=== PATIENT | female | born 1955 | race Caucasian/White ===

== ENCOUNTER → 2016-06-28 | Outpatient (CLI) | payer OTHER ==
[~2016-06-28] MED LIST: ATEN-173; ATV/1 PO; BUPR100T8; BUPR200T2 PO; CHOL2000 PO; CLB/200 PO; GLC/500 PO; HYDC25; HYDR-4383 PO; HYDR25TA4 PO; LOSA25TA18 PO; LYR50 PO; MELATAB2 PO; MULT-190 PO; MULT-506 PO; NAPR-1169; PREG1CAP36 PO; PRLSR20 PO; SERT50TA PO; TEMA15CA4 PO; VITAMIN D3 PO
--- NOTE | 2016-06-28 13:04 | MAMMOGRAPHY REPORT ---
BILATERAL DIGITAL SCREENING MAMMOGRAM WITH CAD: 06/28/2016 CLINICAL HISTORY: Routine screening. Patient has no complaints. TECHNIQUE: Current study was also evaluated with a Computer Aided Detection (CAD) system. Bilatera l CC and MLO views were obtained. COMPARISON: Comparison is made to exams dated: 06/23/2015 mammogram, 01/31/2014 mammogram, 02/16/2013 aspiration, 01/28/2013 ultrasound, 01/28/2013 mammogram, and 01/26/2013 mammogram - [facility]. BREAST COMPOSITION: There are scattered areas of fibroglandular density in both breasts. FINDINGS: No suspicious masses, calcifications, or areas of architectural distortion are noted in e ither breast. There has been no significant interval change compared to prior exams. Scattered bilat eral benign-appearing calcifications are not significantly changed. IMPRESSION: ACR BI-RADS CATEGORY 2: BENIGN There is no mammographic evidence of malignancy. A 1 year screening mammogram is recommended. The p atient will receive written notification of the results. Approximately 10% of breast cancers are not detected with mammography. A negative mammographic repor t should not delay biopsy if a clinically suggestive mass is present. Eleni Phillips M.D. /:06/28/2016 07:42:26 Cnc Applications Engineer: Sparkle Siu, [facility] letter sent: Normal 1/2 BI-RADS Code: ACR BI-RADS Category 2: Benign
== END | disposition home or self-care (01) ==
LOC: C.MAMM 07:16
PROVIDERS: ATTEND Obstetrics & Gynecology
DX: Z12.31 Encounter for screening mammogram for malignant neoplasm of breast (principal)

== ENCOUNTER → 2017-07-03 | Outpatient (CLI) | payer OTHER ==
[~2017-07-03] MED LIST changes: -ATEN-173; -ATV/1 PO; -BUPR100T8; -BUPR200T2 PO; -HYDC25; -NAPR-1169; -PREG1CAP36 PO; -VITAMIN D3 PO
--- NOTE | 2017-07-04 07:45 | MAMMOGRAPHY REPORT ---
BILATERAL DIGITAL SCREENING MAMMOGRAM TOMOSYNTHESIS WITH CAD: 07/03/2017 CLINICAL HISTORY: Routine screening. Patient has no complaints. TECHNIQUE: Breast tomosynthesis in addition to standard 2D mammography was performed. Current study was also evaluated with a Computer Aided Detection (CAD) system. COMPARISON: Comparison is made to exams dated: 06/28/2016 mammogram, 06/23/2015 mammogram, 01/31/2014 ma mmogram, 02/16/2013 aspiration, 01/28/2013 ultrasound, and 01/28/2013 mammogram - [facility]. BREAST COMPOSITION: There are scattered areas of fibroglandular density in both breasts. FINDINGS: No suspicious masses, calcifications, or areas of architectural distortion are noted in ei ther breast. There has been no significant interval change compared to prior exams. Scattered bilater al benign-appearing calcifications are not significantly changed. IMPRESSION: ACR BI-RADS CATEGORY 2: BENIGN There is no mammographic evidence of malignancy. A 1 year screening mammogram is recommended. The pa tient will receive written notification of the results. Approximately 10% of breast cancers are not detected with mammography. A negative mammographic report should not delay biopsy if a clinically suggestive mass is present. Eleni Phillips M.D. /:07/03/2017 07:38:33 Educational Recruiter: Sparkle Siu, [facility] letter sent: Normal 1/2 BI-RADS Code: ACR BI-RADS Category 2: Benign
== END | disposition home or self-care (01) ==
LOC: C.MAMM 07:09
PROVIDERS: ATTEND Obstetrics & Gynecology
DX: Z12.31 Encounter for screening mammogram for malignant neoplasm of breast (principal)

== ENCOUNTER 2018-12-14 05:49 | Inpatient (IN) ==
--- NOTE | 2018-12-08 08:25 | PAT Medication Instructions ---
Medication Instructions Date of Service December 08, 2018 Home Medications amlodipine 10 mg PO QAM bupropion HCl 200 mg PO BID celecoxib 200 mg PO QAM hydrochlorothiazide 25 mg PO QAM losartan 100 mg PO QAM metformin 500 mg PO BID omeprazole 40 mg PO DAILY PRN sertraline 50 mg PO QAM temazepam 15 mg PO DAILY MDD SLEEP ASK your surgeon for instructions celecoxib 200 mg PO QAM DO NOT take the morning of surgery hydrochlorothiazide 25 mg PO QAM losartan 100 mg PO QAM metformin 500 mg PO BID Take morning of surgery With a small sip of water, OTHERWISE NOTHING TO EAT OR DRINK AFTER MIDNIGHT: amlodipine 10 mg PO QAM bupropion HCl 200 mg PO BID omeprazole 40 mg PO DAILY PRN(if needed) sertraline 50 mg PO QAM Take evening before surgery bupropion HCl 200 mg PO BID metformin 500 mg PO BID omeprazole 40 mg PO DAILY PRN (if needed) temazepam 15 mg PO DAILY MDD SLEEP Other Notes If you have any questions please call us at [phone] or [phone] or [phone] or [phone]
--- NOTE | 2018-12-08 10:44 | Anesthesiology Consultation ---
Date of Service December 08, 2018 Assessment & Plan (1) Encounter for pre-operative examination: Chart Review Chart Review: Pending: Refer to Additional Notes / Consult section (pending preop testing (labs, EKG, CXR)) and Patient seen in Pre Admission Testing Teaching & Discussion Pre-Anesthesia Teaching/Discussion Notes: Instructed NPO after midnight before surgery,except medications with 15 cc of water. Medication instructions prov ided according to the PAT guidelines. History Surgery Operation Date: 12/14/18 09:20 Proposed Procedures p L4-L5, L5-S1 Laminectomy and Fusion, Possible Posterior Lumbar Interbody Fusion - Ramses Alamo DO Height/Weight Height: 5 ft 6 in Weight: 99.9 kg Allergies Allergy/AdvReac Type Severity Reaction Status Date / Time No Known Allergies Allergy Unverified 12/04/18 13:10 Medications Home Medications Medication Instructions Recorded Confirmed Last Taken amlodipine 10 mg PO QAM 12/04/18 12/04/18 Unknown bupropion HCl 200 mg PO BID 12/04/18 12/04/18 Unknown celecoxib 200 mg PO QAM 12/04/18 12/04/18 Unknown hydrochlorothiazide 25 mg PO QAM 12/04/18 12/04/18 Unknown losartan 100 mg PO QAM 12/04/18 12/04/18 Unknown metformin 500 mg PO BID 12/04/18 12/04/18 Unknown omeprazole 40 mg PO DAILY PRN 12/04/18 12/04/18 Unknown sertraline 50 mg PO QAM 12/04/18 12/04/18 Unknown temazepam 15 mg PO DAILY MDD SLEEP 12/04/18 12/04/18 Unknown Past Medical History Medical History CKD (chronic kidney disease), stage III HTN (hypertension) Malignant melanoma DX 1981, s/p skin lesion excisions + LND, no chemo/xrt Chronic back pain Degenerative disc disease Diabetes mellitus, type 2 NIDDM GERD (gastroesophageal reflux disease) controlled Obesity Osteoarthritis Exercise / Class Metabolic Activity III < 4 Walking/Shop/Light housework (decreased activity level in setting of worsening back pain) Past Surgical History Surgical History H/O arthroscopy of shoulder RIGHT AND LEFT H/O lymph node excision Hx of arthroscopy of knee Hx of exploratory laparotomy RIGHT OVARY REMOVED WHILE Status post re-excision of malignant skin lesion MELANOMA FROM HEAD Past Anesthesia History No Hx of Anesthesia Complications (except PONV*) and No Family Hx of Anesthesia Complications History of PONV No Hx of Motion Sickness and History of PONV Social History Smoking Status: Never smoker Do You Dip or Chew Tobacco: No Hx Alcohol Use: Yes Alcohol type: wine alcohol intake frequency: holidays/special occasions only Hx Substance Use: No substance use type: does not use Review of Systems Reflux controlled. Patient denies chest pain, shortness of breath, cough, wheezing, palpitations. Physical Exam Vital Signs VITALS BP 132/84 P 70 TEMP 98.3 SP02 96%RA RESP 16 PHYSICAL Full neck and c-spine range of motion. Full TMJ range of motion. TMD 3 finger breaths Mallampati Score 1 Dentition: missing sides, several crowns "all over" Lungs: clear throughout to auscultation Cardiac: regular rate and rhythm, I/ systolic murmur Spine: normal Carotid arteries: negative bruit Extremities: no edema
--- NOTE | 2018-12-08 11:31 | XRay Report ---
XR chest Pre-admission PA/Lat CLINICAL HISTORY: Preoperative evaluation. COMPARISON STUDY: Chest radiograph January 09, 2017. FINDINGS: Lung volumes are normal. Lungs are clear. There is no pneumothorax or pleural effusion. Car diac size is normal. Mediastinal contours are normal. There is no evidence for pulmonary edema. Incid ental note is made of a calcified left lower lung granuloma and anterior cervical spine fusion. IMPRESSION: No acute cardiopulmonary findings. Electronically signed by: Arvin Abreu M.D. 12/08/2018 11:30 AM
[2018-12-08 11:45] LABS: Basophils # (auto) 0.03 K/uL (0-0.2); Basophils % (auto) 0.4 %; Eosinophils # (auto) 0.23 K/uL (0-0.5); Hematocrit (blood only) 36.9 % (37-47); Hemoglobin 12.3 g/dL (12.0-16.0); Immature Granulocytes # (auto) 0.02 K/uL (0.00-0.02); Immature Granulocytes % (auto) 0.3 %; Lymphocytes # (auto) 2.18 K/uL (1.2-3.4); Lymphocytes % (auto) 28.7 %; Mean Corpuscular Hemoglobin 30.1 pg (25-34); Mean Corpuscular Hgb Conc 33.3 g/dL (32-36); Mean Corpuscular Volume 90.4 fL (80-100); Mean Platelet Volume 9.6 fL (7.4-10.4); Monocytes # (auto) 0.58 K/uL (0.11-0.59); Monocytes % (auto) 7.6 %; Neutrophils # (auto) 4.56 K/uL (1.4-6.5); Platelet Count 333 K/uL (130-400); RDW Coefficient of Variation 13.1 % (11.5-14.5); RDW Standard Deviation 43.2 fL (36.4-46.3); Red Blood Count 4.08 M/uL (4.2-5.4)
[2018-12-08 11:53] LABS: Calcium 9.6 mg/dl (8.5-10.1); Creatinine Clr Calc Pharmacy 56.5 ml/min; Est GFR (African American) 55.3; Est GFR (Non-African American) 47.7; Potassium 3.8 mmol/L (3.5-5.1)
[2018-12-08 12:05] LABS: Prothrombin Time 10.3 Seconds (9.0-12.0)
[2018-12-08 12:52] LABS: Estimated Average Glucose 117 mg/dl; Hemoglobin A1C 5.7 % (4.5-5.6)
--- NOTE | 2018-12-11 15:42 | History and Physical Report ---
DATE OF ADMISSION: 12/14/2018 NOTICE TO RECEIVING GREEN PARTY/AGENCY This information is strictly Confidential and protected under [place] law. [place] law prohibits you from making any further disclosure of this information unless further disclosure is expressly permitted by the written consent of the person to whom it pertains or is authorized by law. A general authorization for the release of medical or other information is not sufficient for this purpose. Hospital accepts no responsibility if the information is made available to any other person, INCLUDING THE PATIENT. CHIEF COMPLAINT: Back pain, buttock pain, lower extremity difficulty, paresthesias, numbness and tingling and inability to ambulate appropriately. PAST MEDICAL HISTORY: Positive for depression, melanoma, hypertension. PAST SURGICAL HISTORY: Left shoulder surgery, right shoulder surgery, melanoma resection, cervical spine surgery. ALLERGIES: Negative. FAMILY HISTORY: Heart disease. SOCIAL HISTORY: . No alcohol, tobacco. Moderately active. REVIEW OF SYSTEMS: Negative fevers, sweats, chills. Ear, nose and throat negative. No chest pain, palpitations. No asthma, wheezing, shortness of breath. No nausea, vomiting, urgency, frequency. She admits to numbness and tingling, joint pain, easy bruisability. MEDICATIONS: Celebrex, Wellbutrin, Zoloft, losartan, metformin, hydrochlorothiazide. PHYSICAL EXAMINATION: GENERAL: She is 61. She is 5 feet 4 inches. She is 180 pounds. She is in moderate distress. HEENT: Examination essentially normal. VITAL SIGNS: Blood pressure 130/80, pulse 80, respiratory rate 16. LUNGS: Clear to auscultation. No rales, rhonchi, wheezing. CARDIAC: Normal S1, S2, no S3. ABDOMEN: Soft, nontender, bowel sounds present in all quadrants. EXTREMITIES: She has weakness with dorsiflexion, plantar flexion and decreased range of motion and gait abnormality. She has adequate pulses to the extremities. No upper motor neuron issues. Images demonstrate stenosis at L4-L5 and L5-S1, spondylolisthesis, large herniation L5-S1. PLAN: Laminectomy and fusion L4-S1, possible PLIF L4-S1.
[2018-12-14] MEDS ORDERED: LR 15ML/HR IV SCH (06:00)
[2018-12-14] MEDS ORDERED: ACETAMINOPHEN 1,000 MG/100 ML VIAL IV SCH (06:00)
[2018-12-14] MEDS ORDERED: ACETAMINOPHEN 500 MG TAB PO SCH (06:00)
[2018-12-14] MEDS ORDERED: SODIUM CHLORIDE 0.9% 1000ML IV SCH (06:00)
[2018-12-14] MEDS ORDERED: CEFAZOLIN 2000MG 2,000 MG/15 ML SYR IV SCH (06:00)
[2018-12-14] MEDS ORDERED: LIDOCAINE HCL 2% 2 ML VIAL/AMP(20MG/ML) INFIL ONE (06:40)
[2018-12-14] MEDS ORDERED: ROCURONIUM BROMIDE 10 MG/ML 5 ML VIAL ONE (06:40)
[2018-12-14] MEDS ORDERED: fentaNYL citrate 100 MCG/2 ML VIAL ONE (06:40)
[2018-12-14] MEDS ORDERED: PROPOFOL IV EMULSION 10 MG/ML 20 ML VIAL IV ONE (06:40)
[2018-12-14] MEDS ORDERED: ONDANSETRON INJ 2 MG/ML 2 ML VIAL ONE (06:40)
[2018-12-14] MEDS ORDERED: MIDAZOLAM HCL 1 MG/ML 2ML VIAL ONE (06:40)
[2018-12-14] MEDS ORDERED: VANCOMYCIN HCL 1000MG/20ML VIAL ONE (07:01)
[2018-12-14] MEDS ORDERED: BUPIVACAINE/EPINEPHRINE 0.5% MPF 1:200,000 30 ML VIAL ONE (07:01)
[2018-12-14] MEDS ORDERED: GELATIN SPONGE SZ 100 ONE (07:01)
[2018-12-14] MEDS ORDERED: BACITRACIN INJ 50,000 UNIT VIAL ONE (07:02)
[2018-12-14] MEDS ORDERED: THROMBIN FOR SOLN 20000 UNIT KIT ONE (07:02)
[2018-12-14] MEDS ORDERED: ONDANSETRON INJ 2 MG/ML 2 ML VIAL IV PRN ×2 (07:17→11:30)
[2018-12-14] MEDS ORDERED: HYDROmorphone INJ 2 MG/ML SYR/VIAL IV PRN (07:17)
[2018-12-14] MEDS ORDERED: ATROPINE SULFATE 0.1 MG/ML 10ML SYR IV PRN (07:17)
[2018-12-14] MEDS ORDERED: ePHEDrine sulfate 50 MG/ML AMP IV PRN (07:17)
--- NOTE | 2018-12-14 07:19 | History & Physical Bridge Note ---
Date of Service December 14, 2018 History & Physical Bridge Note I have examined the patient, reviewed the History & Physical and in the interval since the performance of the History & Physical I have noted the following changes of clinical significance: no changes noted
[2018-12-14] MEDS ORDERED: HYDROmorphone INJ 2 MG/ML SYR/VIAL ONE (07:59)
--- NOTE | 2018-12-14 10:20 | Post Operative Brief Note ---
PG Immediate Post Op with CF Date of Surgery December 14, 2018 Pre & Post Diagnosis Operation Date: 12/14/18 07:30 Pre-Op Diagnosis: Lumbar spinal stenosis at L4-L5 and L5-S1, spondylolisthesis, large herniation L5-S1. Post-Op Diagnosis: Lumbar spinal stenosis at L4-L5 and L5-S1, spondylolisthesis, large herniation L5-S1. Procedure Operation Date: 12/14/18 07:30 Actual Procedures p L4-L5, L5-S1 Laminectomy and Fusion, Posterior Lumbar Interbody Fusion(Not Applicable) - Ramses Alamo DO Surgeon Ramses Alamo DO Business Operations Consultant Jj Thomson Estimated Blood Loss 200 Findings Consistent with Post-Op Diagnosis Drains Blanchard Catheter and Hemovac Drain
--- NOTE | 2018-12-14 10:31 | Fluoroscopy Report ---
INTRAOPERATIVE RADIOGRAPH CLINICAL HISTORY: L4-S1 spinal fusion. Fluoroscopy time: 10 seconds. FINDINGS: A single spot fluoroscopic view of the lower lumbar spine is presented. There has been disc ectomy at L4-L5 and L5-S1 with laminectomy and posterior fusion from L4-S1. Interpedicular screws are present at all levels. Orthopedic hardware appears intact. IMPRESSION: Intraoperative image from L4-S1 spinal fusion as above. Electronically signed by: Darron Hooper M.D. 12/14/2018 10:29 AM
[2018-12-14] MEDS: fentaNYL citrate 100 MCG/2 ML VIAL IV PRN ×2 (10:33→10:38)
--- NOTE | 2018-12-14 11:22 | Anesthesiology Progress Note ---
Date of Service December 14, 2018 Anesthesia Post Procedure Vital Signs Vital Signs: Temp Pulse Pulse Resp BP Pulse Ox 12/14/18 11:15 64 16 102/73 98 12/14/18 11:05 67 16 106/67 94 12/14/18 10:55 36.4 C L 74 16 90/59 L 94 12/14/18 10:45 66 16 104/74 96 12/14/18 10:35 68 18 105/68 92 12/14/18 10:25 72 14 96/60 L 99 12/14/18 10:16 36.0 C L 77 16 92/65 L 99 12/14/18 06:19 36.9 C 76 20 129/65 93 Pain Intensity Left Back: Pain Intensity: 5 Transfer of Care Handoff Completed per policy Notes Mental Status: alert / awake / arousable and participated in evaluation Patient Amnestic to Procedure: Yes Nausea / Vomiting: improving with treatment Pain: improving with treatment Airway Patency, RR, SpO2: stable & adequate BP & HR: stable & adequate Hydration State: stable & adequate Anesthetic Complications: no major complications apparent and Pt Satisfied with anesthetic care
[2018-12-14] MEDS ORDERED: NALOXONE HCL 0.4 MG/1 ML VIAL/CARP IV PRN (11:30)
[2018-12-14] MEDS ORDERED: SODIUM CHLORIDE 0.9% 1000ML 1,000 ML IV SCH (11:30)
[2018-12-14] MEDS ORDERED: MAGNESIUM HYDROXIDE SUSP 30 ML UDC PO PRN (11:30)
[2018-12-14] MEDS ORDERED: bisacodyL 10 MG SUPP PR PRN (11:30)
[2018-12-14] MEDS ORDERED: SOD PHOSPHATE/SOD BIPHOSPHATE ENEMA 132 ML BTL PR PRN (11:30)
[2018-12-14] MEDS ORDERED: ONDANSETRON 4 MG TAB PO PRN (11:30)
[2018-12-14] MEDS ORDERED: PANTOprazole 40 MG TAB PO PRN (11:30)
[2018-12-14] MEDS ORDERED: DO NOT ADMINISTER PNEUMOCOCCAL VACCINE PRN (11:30)
[2018-12-14] MEDS ORDERED: DO NOT ADMINISTER FLU VACCINE PRN (11:30)
[2018-12-14] MEDS: OXYCODONE HCL IR 5 MG TAB (IMMEDIATE RELEASE) PO PRN ×2 (12:12→18:16)
[2018-12-14] MEDS ORDERED: PNEUMOCOCCAL POLYSACCHARIDES 25 MCG/0.5 ML VIAL/SYR IM ONE (14:15)
[2018-12-14] MEDS ORDERED: PNEUMOCOCCAL ADMINISTRATION CHARGE ONE (14:15)
[2018-12-14] MEDS: CEFAZOLIN 2000MG 2,000 MG/15 ML SYR IV SCH ×2 (15:53→23:42)
[2018-12-14] MEDS: METFORMIN HCL 500 MG TAB PO SCH (17:32)
[2018-12-14] MEDS: HYDROmorphone INJ 0.5 MG/0.5 ML SYR IV PRN (21:01)
[2018-12-14] MEDS: DOCUSATE SODIUM/SENNA 50/8.6MG TAB PO SCH (21:03)
[2018-12-14] MEDS: BuPROPion SR 100 MG TABCR PO SCH (21:03)
[2018-12-15] MEDS: HYDROmorphone INJ 0.5 MG/0.5 ML SYR IV PRN ×3 (00:05→09:27)
[2018-12-15] MEDS: ACETAMINOPHEN 1,000 MG/100 ML VIAL IV PRN (03:06)
[2018-12-15 07:02] LABS: Basophils # (auto) 0.01 K/uL (0-0.2); Basophils % (auto) 0.1 %; Eosinophils # (auto) 0.07 K/uL (0-0.5); Eosinophils % (auto) 0.8 %; Hematocrit (blood only) 27.8 % (37-47); Hemoglobin 9.1 g/dL (12.0-16.0); Immature Granulocytes # (auto) 0.01 K/uL (0.00-0.02); Immature Granulocytes % (auto) 0.1 %; Lymphocytes # (auto) 1.64 K/uL (1.2-3.4); Lymphocytes % (auto) 18.3 %; Mean Corpuscular Hemoglobin 29.9 pg (25-34); Mean Corpuscular Hgb Conc 32.7 g/dL (32-36); Mean Corpuscular Volume 91.4 fL (80-100); Mean Platelet Volume 9.2 fL (7.4-10.4); Monocytes # (auto) 0.75 K/uL (0.11-0.59); Monocytes % (auto) 8.4 %; Neutrophils % (auto) 72.3 %; Platelet Count 255 K/uL (130-400); RDW Coefficient of Variation 13.4 % (11.5-14.5); RDW Standard Deviation 44.9 fL (36.4-46.3); Red Blood Count 3.04 M/uL (4.2-5.4); White Blood Count 8.98 K/uL (4.8-10.8)
[2018-12-15] MEDS: OXYCODONE HCL IR 5 MG TAB (IMMEDIATE RELEASE) PO PRN ×3 (07:15→21:32)
[2018-12-15 07:40] LABS: BUN Creatinine Ratio 13.9 (10-20); Calcium 8.1 mg/dl (8.5-10.1); Creatinine Clr Calc Pharmacy 60.5 ml/min; Est GFR (African American) 60.1; Est GFR (Non-African American) 51.9; Potassium 3.7 mmol/L (3.5-5.1)
[2018-12-15] MEDS: SERTRALINE HCL 50 MG TABLET PO SCH (08:47)
[2018-12-15] MEDS: METFORMIN HCL 500 MG TAB PO SCH ×2 (08:48→17:28)
[2018-12-15] MEDS: BuPROPion SR 100 MG TABCR PO SCH ×2 (08:48→20:42)
[2018-12-15] MEDS: LOSARTAN POTASSIUM 50 MG TAB PO SCH (08:48)
[2018-12-15] MEDS: AMLODIPINE BESYLATE 5 MG TAB PO SCH (08:49)
[2018-12-15] MEDS: hydroCHLOROthiazide 25 MG TAB PO SCH (08:49)
--- NOTE | 2018-12-15 08:54 | Anesthesiology Progress Note ---
Date of Service December 15, 2018 Anesthesia Post Procedure Vital Signs Vital Signs: Temp Pulse Pulse Pulse Resp BP Pulse Ox 12/15/18 07:48 36.7 C 78 18 93/61 L 92 12/15/18 03:05 37.0 C 72 17 94/65 L 96 12/14/18 23:00 36.7 C 79 16 96/64 L 92 12/14/18 19:56 36.7 C 70 16 113/77 97 12/14/18 19:10 36.7 C 68 16 109/73 94 12/14/18 15:25 36.3 C L 62 16 110/73 100 12/14/18 14:22 59 L 18 100/67 96 12/14/18 13:35 65 18 104/70 96 12/14/18 12:33 74 18 117/80 99 12/14/18 11:55 75 20 111/71 98 12/14/18 11:30 36.4 C L 66 18 99/76 L 94 12/14/18 11:15 64 16 102/73 98 12/14/18 11:05 67 16 106/67 94 12/14/18 10:55 36.4 C L 74 16 90/59 L 94 12/14/18 10:45 66 16 104/74 96 12/14/18 10:35 68 18 105/68 92 12/14/18 10:25 72 14 96/60 L 99 12/14/18 10:16 36.0 C L 77 16 92/65 L 99 Pain Intensity Left Back: Pain Intensity: 7 Notes Mental Status: alert / awake / arousable Patient Amnestic to Procedure: Yes Nausea / Vomiting: adequately controlled Pain: improving with treatment Airway Patency, RR, SpO2: stable & adequate BP & HR: stable & adequate Hydration State: stable & adequate Anesthetic Complications: no major complications apparent
[2018-12-15] MEDS ORDERED: TEMAZEPAM 15 MG CAPSULE PO SCH ×2 (09:00→21:00)
[2018-12-15] MEDS ORDERED: Nursing to Pharmacy Communication ONE (09:32)
[2018-12-15] MEDS ORDERED: HYDROmorphone INJ 0.5 MG/0.5 ML SYR IV PRN (13:16)
[2018-12-15] MEDS: KETOROLAC 30 MG/ML VIAL IV SCH ×2 (15:06→20:43)
[2018-12-15] MEDS: DOCUSATE SODIUM/SENNA 50/8.6MG TAB PO SCH (20:43)
[2018-12-16] MEDS: KETOROLAC 30 MG/ML VIAL IV SCH ×2 (01:59→08:21)
[2018-12-16] MEDS: OXYCODONE HCL IR 5 MG TAB (IMMEDIATE RELEASE) PO PRN (01:59)
[2018-12-16 03:47] VITALS: TEMP 98.2
[2018-12-16] MEDS: ACETAMINOPHEN 1,000 MG/100 ML VIAL IV PRN (04:24)
[2018-12-16] MEDS: SERTRALINE HCL 50 MG TABLET PO SCH (08:18)
[2018-12-16] MEDS: BuPROPion SR 100 MG TABCR PO SCH (08:18)
[2018-12-16] MEDS: METFORMIN HCL 500 MG TAB PO SCH (08:18)
[2018-12-16] MEDS: hydroCHLOROthiazide 25 MG TAB PO SCH (08:21)
[2018-12-16] MEDS: LOSARTAN POTASSIUM 50 MG TAB PO SCH (08:21)
[2018-12-16] MEDS: AMLODIPINE BESYLATE 5 MG TAB PO SCH (08:21)
[2018-12-16 08:27] VITALS: BP 117/84
[2018-12-16 09:11] VITALS: PULSE 64
[2018-12-16 13:15] VITALS: O2SAT 96
--- NOTE | 2018-12-25 13:05 | Discharge Summary ---
She is discharged home in improved stable condition. Instructions given. Precautions given. She had an uneventful stay, moderate pain. She has no fevers, sweats, chills. She had no neurological issues, no chest pain, shortness of breath. ASSESSMENT: Status post reconstruction of the spine. PLAN: Discharge home on 12/16/2018. Followup appointment in 2 weeks. Instructions given. Precautions given for her followup appointment. Medications also provided.
--- NOTE | 2018-12-25 18:50 | Operative Report ---
DATE OF OPERATION: 12/14/2018 PREOPERATIVE DIAGNOSES: Lumbar spinal stenosis, large herniation, spondylolisthesis and degenerative scoliosis. POSTOPERATIVE DIAGNOSES: Lumbar spinal stenosis, large herniation, spondylolisthesis and degenerative scoliosis. PROCEDURES INCLUDE: 1. Lumbar spine laminectomy L4-L5 and L5-S1 lumbar spine, foraminotomy and partial facetectomy. 2. Instrumentation of lumbar spine, L4, L5, S1; segmental instrumentation L4-S1 with pedicle screw construct. 3. Resection of a large disk herniation at L5-S1. 4. Reduction of spondylolisthesis, lumbar spine. 5. Interbody fusion L5-S1, posterior lumbar interbody fusion called PLIF procedure. 6. Posterolateral fusion. SURGEON: Ramses Alamo DO. DESK LIEUTENANT: Jj Santoro PA-C. COMPLICATIONS: Zero. BLOOD LOSS: 250. ANESTHETIC: General. DESCRIPTION OF PROCEDURE: The patient was marked in the preop holding area, taken back to surgery. Bridge note provided. General intubated anesthetic provided to the patient, placed prone, scrubbed, prepped and draped sterile. We made a skin incision, fascial incision. By putting a deep self-retaining retractor, we could visualize the spine quite readily from L4 to the sacrum. We carefully decompressed the neural elements between L4-L5 and L5-S1. We then provided foraminotomies and partial facetectomies taking care of all the pressure at the L4-L5 and L5-S1 interval. Next, we retracted the dura over in a left-sided direction. We were able to remove a significant disc herniation at L5-S1 lumbar spine. This further more freed up the nerve root. We then instrumented the spine, safely getting pedicle screws at L4, L5 and S1 lumbar spine. With instrumentation and construct, we were able to reduce the spondylolisthesis leading to reduction of the spondylolisthesis at L5 on S1. We then put an interbody device called a cage at L5-S1. This interbody device was filled with autograft. This restored the height of the vertebrae and helped with the reduction. We then bone grafted out of the transverse processes, completing 360 fusion. We bone grafted from L4-L5 and L5 to the sacral ala 2-level fusion. We then irrigated thoroughly, closed over vancomycin powder, closed over a Hemovac drain with 1 Vicryl 2-0 and staple gun on the skin. Sterile dressings applied. The patient returned to PACU in improved, stable condition. There were no apparent complications. Sponge and needle count correct. Bone graft used was autograft and demineralized bone matrix. I attest to the content of the Intraoperative Record and any orders documented therein. Any exception s are noted below.
== END 2018-12-16 11:59 | disposition home or self-care (01) | DRG 455 ==
LOC: ASU 05:49 → 3E 10:20